=== PATIENT | male | born 1980 | race African-American/Black ===

== ENCOUNTER 2024-07-13 14:26 | Emergency (ER) | payer SELFPAY ==
[2024-07-13] MEDS ORDERED: Bupivacaine 0.25% 10 ML VIAL ONE (15:40)
== END 2024-07-13 15:55 | disposition home or self-care (01) ==
LOC: ERS 14:26
DX: K03.81 Cracked tooth (principal); F17.210 Nicotine dependence, cigarettes, uncomplicated
CPT/HCPCS: 99282; J0665

== ENCOUNTER 2024-07-14 19:01 | Emergency (ER) | payer SELFPAY | END 2024-07-14 19:34 | disposition left against medical advice (07) | LOC: ERS 19:01 | DX: Z53.21 Procedure and treatment not carried out due to patient leaving prior to being seen by health care provider (principal) ==

== ENCOUNTER 2025-03-16 18:53 | Emergency (ER) | payer SELFPAY ==
[2025-03-16 19:08] LABS: Bacteria/HPF None Seen HPF (None Seen); CAUTI Indications for Culture Pelvic or flank pain; Glucose, Urine (Dipstick) Normal (Negative); Leukocyte Negative Leu/uL (Negative); Protein, Urine (Dipstick) Negative (Neg-Trace); RBC/HPF 0-3 HPF (0-3); Specific Gravity, Urine 1.000 (1.002-1.036); WBC/HPF None Seen HPF (0-3)
[2025-03-16 19:16] LABS: Urine Culture Reflex No No
== END 2025-03-16 21:40 | disposition left against medical advice (07) ==
LOC: ERS 18:53
DX: Z53.21 Procedure and treatment not carried out due to patient leaving prior to being seen by health care provider (principal)
CPT/HCPCS: 81001